=== PATIENT | male | born 1990 | race African-American/Black ===

== ENCOUNTER → 2021-03-23 16:58 | Outpatient (CLI) | payer MEDICAID, SELFPAY | LOC: LAB.FUTURE 17:02 → WOBLAB 04-03 13:36 | PROVIDERS: Visit Provider Obstetrics & Gynecology | DX: Z00.00 Encounter for general adult medical examination without abnormal findings (principal) | CPT/HCPCS: 36415; 86850; 86900; 86901 ==

== ENCOUNTER 2021-04-17 18:07 | Emergency (ER) | payer MEDICAID, SELFPAY ==
[2021-04-17 18:07] VITALS: BP 158/97; PULSE 107; RESP 18; TEMP 36.7; O2SAT 98; BMI 21.5
== END 2021-04-17 21:23 | disposition left against medical advice (07) ==
LOC: ED 21:23
DX: Z53.21 Procedure and treatment not carried out due to patient leaving prior to being seen by health care provider (principal)

== ENCOUNTER 2021-06-22 22:47 | Emergency (ER) | payer MEDICAID, SELFPAY ==
[2021-06-22 22:47] VITALS: BP 140/95; PULSE 103; RESP 18; TEMP 36.4; O2SAT 98
[2021-06-22 22:48] VITALS: BP 140/95; PULSE 103; RESP 18; TEMP 36.4; O2SAT 98; BMI 22.4
--- NOTE | 2021-06-22 22:55 | EDS_ITS ---
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 Does have history of hepatitis C. Denies history of HIV. He has received Narcan several times in the past. He is requesting detox. He was informed presently because of the pandemic there are no beds available for detox. He apparently hit his head. Complains of mild headache. Denies nausea v omiting. Denies change in vision ringing his ears decreased hearing. Denies any dental trauma. He denies malalignment of his teeth. He reports no difficulty opening closing his mouth. He denies chest pain or shortness of breath. He denies nausea or vomiting. He injected in his hand. He denies any redness or pain. He has no other complaints Prior similar symptoms: Yes Recent Illness/Hospitalization: Yes [facility] Medical History Substance abuse Home Medications No Known/Unobtainable [No Known Home Medications] 08/26/16 [History Last Taken Unknown] Allergy/AdvReac Type Severity Reaction Status Date / Time amoxicillin Allergy Swelling Verified 04/17/21 18:07 onion Allergy Unknown Verified 04/17/21 18:07 Family History unable to obtain unable to obtain Social History (Updated 06/22/21 @ 22:[address] Kevin Messina MD) household members: none Smoking Status: Current every day smoker tobacco type: cigarettes substance use type: heroin ROS ROS ED Constitutional Constitutional ED: Denies chills, fever(s), subjective, sweats or weight loss Eyes Eyes: Denies blurry vision, change in vision or diplopia ENT ENT ED: Denies ear pain, rhinorrhea or sore throat Cardiovascular Cardiovascular: Denies chest pain, palpitations or racing heartbeat Respiratory/Chest Respiratory/Chest: Denies cough, dyspnea or dyspnea on exertion Gastrointestinal Gastrointestinal: Denies abdominal pain, diarrhea, nausea or vomiting Musculoskeletal Musculoskeletal: Denies arthralgias, back pain, myalgias or neck pain Integumentary Reports Abrasions; Denies abscess or rash Neurologic Neurologic: Reports headache(s); Denies paresthesias or weakness Endocrine Endocrinology: Denies polydipsia, polyphagia or polyuria Hematologic/Lymphatic Hematologic/Lymphatic: Denies anemia, easy bleeding, easy bruising or lymphadenopathy EXAM Physical Exam Const Vital Signs: 06/22/21 22:47 06/22/21 22:48 Temperature 97.5 F L 97.5 F L Temperature Source Temporal Temporal Pulse Rate 103 H 103 H Respiratory Rate 18 18 Blood Pressure 140/95 H 140/95 H Blood Pressure Mean 110 110 Pulse Ox 98 98 Oxygen Delivery Method Room Air Room Air Positive well nourished and well developed General Appearance ED: well developed and NAD; Negative for cyanotic, diaphoretic or pallor HEENT Reports TM's clear and moist mucous membranes HEENT Narrative: There is no septal deviation hematoma. There is no clinical findings of basal skull fracture. He has a small abrasion noted above the right brow. trauma; Negative for tenderness Tympanic Membrane ED: Yes TM's clear Eyes PERRL and EOMs intact bilaterally Eyes Narrative: There is no subconjunctival hemorrhage noted. General Eye ED: Negative for pale conjunctiva or scleral icterus Neck no lymphadenopathy, supple and no JVD Chest Wall inspection of chest normal and palpation of chest normal Resp normal respiratory effort and clear to auscultation bilaterally Cardio regular rhythm, S1 normal heart sound, S2 normal heart sound and no murmurs Rate: tachycardic GI normal to inspection, nondistended, normoactive bowel sounds and non-tender Palpation: soft Extremity Negative for normal to inspection Extremity Narrative: Recent injection site General Extremety ED: Negative for edema or tenderness General Extremity: Negative for edema Neuro oriented x3 and CN's II-XII intact bilaterally Sensorium / Orientation: alert Psych mental status grossly normal Skin no rashes or lesions noted and no wounds General Skin Exam: Negative for jaundice or pallor MDM MDM MDM Narrative Medical decision making narrative: Patient admits to heroin use. He admits that he injected a brown powder which he believes was heroin. Squad administered 1 mg of intravenous Narcan was administered and patient awoke. This occurred approximately 2024 minutes prior to arrival. Will observe for another 15 minutes. If he is still awake oriented in no respiratory distress will discharge to home. Patient is requesting detox. Patient was informed that presently because of the pandemic there is no detox for opiates. Patient was reassessed at 2310. He is sitting up wide-awake smiling talking to the officer that was called to the scene. Discharge Plan Triage Chief Complaint: Overdose ED Provider: Kevin Messina Dx/Rx/DC Orders Clinical Impression: Accidental heroin overdose, Respiratory failure, History of hepatitis C, Active intravenous drug use Instructions: ED Opiate Abuse Prescriptions: No Action No Known Home Medications RF: 0 Primary Care Provider: Care Physician,No Primary Referrals: Care Physician,No Primary [Primary Care Provider] - [facility] [STAFF PHYSICIAN] - As soon as possible Disposition Disposition: Home, Self Care
== END 2021-06-22 23:30 | disposition home or self-care (01) ==
PROVIDERS: Emergency Provider Emergency Medicine; Visit Provider Emergency Medicine
DX: T40.1X1A Poisoning by heroin, accidental (unintentional), initial encounter (principal); J96.90 Respiratory failure, unspecified, unspecified whether with hypoxia or hypercapnia; F17.210 Nicotine dependence, cigarettes, uncomplicated; Y92.9 Unspecified place or not applicable; B19.20 Unspecified viral hepatitis C without hepatic coma; S00.91XA Abrasion of unspecified part of head, initial encounter; X58.XXXA Exposure to other specified factors, initial encounter; Y93.9 Activity, unspecified
CPT/HCPCS: 99284